=== PATIENT | female | born 1955 | race Caucasian/White ===

== ENCOUNTER 2016-09-28 13:53 | Emergency (ER) | payer OTHER ==
--- NOTE | 2016-09-28 15:40 | UC ---
Lower Extremity/Ankle HPI - HPI Summary HPI Summary: complaint of knee and ankle pain lost her footing and slid backwards and feel on her back yesterday afternoon off 6 inch ledge twisted her ankle and leg as she fell onto her back denies hitting her head and no LOC heard something snap in her knee was able ambulate with a limp afterwards right ankle pain that radiates into foot and medial side of knee hx of arthroscopic surgery in right knee lower back pain started today in left lumber area today that is a constant aching non radiating pain can't get in comfortable position hx of chronic back pain denies incontinence took advil last night and today with some relief - History of Current Complaint Chief Complaint: UCLowerExtremity Stated Complaint: LEG INJURY Hx Obtained From: Patient - Allergies/Home Medications Allergies/Adverse Reactions: Allergies Allergy/AdvReac Type Severity Reaction Status Date / Time No Known Allergies Allergy Verified 09/28/16 14:25 PMH/Surg Hx/FS Hx/Imm Hx Previously Healthy: Yes - lower back pain Cardiovascular History: Hypertension - Surgical History Surgical History: Yes Surgery Procedure, Year, and Place: RT KNEE 1977, GALLBLADDER 1999 - Family History Known Family History: Negative: Cardiac Disease, Hypertension, Diabetes - Social History Occupation: Employed Full-time Lives: With Family Alcohol Use: None Substance Use Type: None Smoking Status (MU): Never Smoked Tobacco Have You Smoked in the Last Year: No Review of Systems Constitutional: Negative Skin: Negative Eyes: Negative ENT: Negative Respiratory: Negative Cardiovascular: Negative Gastrointestinal: Negative Genitourinary: Negative Motor: Negative Neurovascular: Negative Musculoskeletal: Other: - right knee , right ankle and lower back pain Neurological: Negative Psychological: Negative All Other Systems Reviewed And Are Negative: Yes Physical Exam Triage Information Reviewed: Yes Appearance: No Pain Distress, Well-Nourished Vital Signs: Initial Vital Signs Temp 98.7 F 09/28/16 14:19 Pulse 102 09/28/16 14:19 Resp 20 09/28/16 14:19 BP 126/65 09/28/16 14:19 Pulse Ox 98 09/28/16 14:19 Vital Signs Reviewed: Yes Eyes: Positive: Conjunctiva Clear ENT: Positive: Pharynx normal, TMs normal Neck: Positive: Other: - no cspine tenderness Respiratory: Positive: Lungs clear, Normal breath sounds, No respiratory distress, No accessory muscle use Cardiovascular: Positive: RRR, No Murmur, Pulses Normal Abdominal Exam: Normal Abdomen Description: Positive: Soft Bowel Sounds: Positive: Present Musculoskeletal: Positive: Other: - Spine have no noted deformities or signs of inflammation. Curvature of thoracic, and lumbar spine are within normal limits. Bony features of shoulders and hips are of equal height bilaterally. Posture is upright, and gait is smooth and normal. Spinous processes of T1-L5 palpable, midline, and non-tender; No step-offs. left paraspinal tenderness. Neurological Exam: Normal Neurological: Positive: Other: - patellar reflexes intact Psychological Exam: Normal Skin Exam: Normal - Additional Comments Knee-right No bony deformities, tendenrss in entire medial side of knee limited ROM Limited internal and external rotation. mild edema on left side of knee, difficult to due more testing d/t pain RLE_Ankle- tednerness in lateral side of ankle Full ROM dorsi/plantar flexion , inversion & eversion. [place] test negative. Lower Extremity Course/Dx - Course Course Of Treatment: exam completed. x-ray shows no fractures. will send to ortho for further evaluation and treatment - Differential Dx/Diagnosis Differential Diagnosis/HQI/PQRI: Fracture (Closed), Sprain, Strain Provider Diagnoses: right knee sprain, right ankle sprain Discharge - Discharge Plan Condition: Stable Disposition: HOME Patient Education Materials: Knee Pain (ED), Ankle Sprain (ED), RICE Therapy ( ED) Referrals: Maricarmen Hubbard MD [Primary Care Provider] - Pat Carrasco MD [Medical Doctor] - Additional Instructions: Please call health and safety specialist for an appointment. They will evaluate and determine your treatment. Use crutches as needed until you are seen by orthopedics. Take acetaminophen or ibuprofen to control pain and reduce inflammation. Please review your discharge instructions. If your symptoms worsen call health and safety specialist or return to urgent care.
[2016-09-28 16:19] VITALS: BP 123/56
--- NOTE | 2016-09-28 16:26 | RAD ---
Indication: Right knee injury. 4 views of the right knee demonstrates no definite fracture. Chondrocalcinosis is noted. Degenerative changes of the patellofemoral joint is noted. No definite joint effusion is identified. IMPRESSION: Chondrocalcinosis without definite fracture. Degenerative changes of the patellofemoral joint is noted.
--- NOTE | 2016-09-28 16:27 | RAD ---
Indication: Right ankle injury. 3 views of the right ankle demonstrate soft tissue swelling laterally. No fracture is noted. Ankle mortise is intact. IMPRESSION: Soft tissue swelling without evidence of fracture.
== END 2016-09-28 16:40 | disposition home or self-care (01) ==
LOC: UCEAST 13:53
DX: S93.401A Sprain of unspecified ligament of right ankle, initial encounter (principal); S83.91XA Sprain of unspecified site of right knee, initial encounter; W17.89XA Other fall from one level to another, initial encounter
CPT/HCPCS: 99213; G0463